=== PATIENT | female | born 1985 | race Caucasian/White ===

== ENCOUNTER 2024-05-04 10:48 | Inpatient (IN) | payer OTHER, SELFPAY ==
[2024-05-04] VITALS (173 sets, daily range): BP systolic 85–237; BP diastolic 42–205; PULSE 56–184; TEMP 36.6–37.3; O2SAT 89–100; BMI 27.6
--- NOTE | 2024-05-04 10:48 | LDADM ---
This patient, Mya Jordan, was admitted to Labor/Delivery/Recovery 106 on 05/04/24 at 10:48. Plans for labor, pain management and were discussed with patient. Patient/family oriented to hospital policies and general routines including ID bracelet, bed and alarms, visiting hours, pain management, procedures, bathroom and other care routines, personal items, smoking policy, room service/diet and guest tray routines, security routines, and visiting hours. Patient/Family are encouraged to report perceived risks to care and to ask questions if they do not understand what they are told or what they should do. See OBIX for further documentation.
[2024-05-04 11:46] LABS: Basophils Absolute Auto 0.1 K/mm3 (0.0-0.1); Basophils Percent Auto 0.6 % (0.2-1.2); Eosinophils Absolute Auto 0.1 K/mm3 (0-0.3); Eosinophils Percent Auto 1.2 % (0-4.4); Hematocrit 35.2 % (37.0-47.0); Hemoglobin 11.7 g/dL (12.0-15.0); Immature Granulocyte Absolute 0.53 K/mm3 (0.00-0.031); Immature Granulocyte Percent A 4.9 % (0-0.5); Lymphocytes Absolute Auto 1.45 K/mm3 (0.9-3.2); Lymphocytes Percent Auto 13.4 % (18.3-44.2); Mean Corpuscular HGB Conc 33.2 g/dl (32-36); Mean Corpuscular Hemoglobin 29.2 pg (26-34); Mean Corpuscular Volume 87.8 fl (80-100); Mean Platelet Volume 9.8 fl (7.4-10.4); Monocytes Absolute Auto 0.6 K/mm3 (0.1-0.6); Monocytes Percent Auto 5.2 % (2.6-8.5); Neutrophils Absolute Auto 8.1 K/mm3 (1.3-6.7); Neutrophils Percent Auto 74.7 % (45.5-73.1); Platelet Count Result 167 k/mm3 (150-375); Red Blood Count 4.01 M/mm3 (4.2-5.4); Red Cell Distribution Width 15.9 % (11.5-14.5); White Blood Count 10.9 K/mm3 (4.5-10.0)
[2024-05-04] MEDS: miSOPROStol 25 MCG TABLET 50 MCG BUCCAL (11:55)
[2024-05-04 12:19] LABS: Rapid Plasma Reagin Non-Reactive (NonReactive)
[2024-05-04 12:53] LABS: HIV 1/2 Ab P24 Ag Result Negative (Negative)
[2024-05-04] MEDS: LACTATED RINGERS 1,000 ML 125 ML IV CONT ×2 (16:36→18:31)
[2024-05-04] MEDS: OXYTOCIN 30 UNITS/NS 500 ML 30 UNITS/500 ML BAG IV CONT (16:37)
--- NOTE | 2024-05-04 17:16 | WPDANESEPP ---
Anes - Eval Pre Procedure Procedure: Labor epidural Date/Time: 05/04/24 17:16 Surgeon: tesha Preop Diagnosis: Abdominal pain with contractions Pre Op Diagnosis: SROM Patient Data Age: 38 Gender: F Height: 1.7 m Weight: 80 kg Last Vital Signs Temp 98.9 F 05/04/24 16:00 Pulse 90 05/04/24 17:00 BP 115/77 05/04/24 17:00 O2 Del Method Room Air 05/04/24 12:14 Allergies Allergy/AdvReac Type Severity Reaction Status Date / Time No Known Allergies Allergy Verified 04/17/24 12:34 Home Medications Medication Instructions Recorded Confirmed Type aspirin 81 mg tablet 81 mg PO DAILY 04/17/24 04/17/24 History bupropion HCl 100 mg tablet 300 mg PO DAILY 04/17/24 04/17/24 History ferrous sulfate 325 mg (65 mg 325 mg PO DAILY 04/17/24 04/17/24 History iron) tablet vits no.126-ferrous fum 1 tablet PO DAILY 04/17/24 04/17/24 History 28 mg iron-folic acid 800 mcg tablet (Classic ) valacyclovir 500 mg tablet 500 mg PO DAILY 05/04/24 05/04/24 History Laboratory Tests 05/04/24 11:31 WBC 10.9 H K/mm3 (4.5-10.0) RBC 4.01 L M/mm3 (4.2-5.4) Hgb 11.7 L g/dL (12.0-15.0) Hct 35.2 L % (37.0-47.0) MCV 87.8 fl (80-100) MCH 29.2 pg (26-34) MCHC 33.2 g/dl (32-36) RDW 15.9 H % (11.5-14.5) Plt Count 167 k/mm3 (150-375) MPV 9.8 fl (7.4-10.4) Immature Gran % (Auto) 4.9 H % (0-0.5) Neut % (Auto) 74.7 H % (45.5-73.1) Lymph % (Auto) 13.4 L % (18.3-44.2) [place] % (Auto) 5.2 % (2.6-8.5) Eos % (Auto) 1.2 % (0-4.4) Baso % (Auto) 0.6 % (0.2-1.2) Lymph # (Auto) 1.45 K/mm3 (0.9-3.2) [place] # (Auto) 0.6 K/mm3 (0.1-0.6) Eos # (Auto) 0.1 K/mm3 (0-0.3) Baso # (Auto) 0.1 K/mm3 (0.0-0.1) Abs Immat Gran (auto) 0.53 H K/mm3 (0.00-0.031) Absolute Neuts (auto) 8.1 H K/mm3 (1.3-6.7) Absolute Nucleated RBC 0.000 K/mm3 (0.0-0.012) Nucleated RBC % 0.0 % (0.0-0.2) RPR Non-reactive (NonReactive) HIV 1&2 Ab/P24 Ag 4thGn Negative (Negative) Blood Type O Positive Antibody Screen Negative : gestational age HCG: positive Patient hx anesthesia problems: none Family hx anesthesia problems: none Results Review: All pre-operative results and documents have been reviewed as part of the pre-operative evaluation. [facility] Past Medical History Medical History Overweight (BMI 25.0-29.9) and not yet delivered Family History Family History Other No pertinent family history Social History Social History Years smoked: 2 Smoking status: Former smoker Substance use: never Do You Feel Safe in your Home?: Yes Lack of Transportation: No Lack of Food: Never True Current Housing: I Have Housing Concerned About Future Housing: No Difficulty Paying Gas/Electric Bills: No Difficulty Paying for Meds: No Currently Unemployed: No Education: Bachelor's Degree Difficulty w/ Childcare or Family Care: No Spiritual care concerns: No Exam Day of Procedure 05/04/24 17:16 Patient weight: overweight Airway: Mallampati scale class II
--- NOTE | 2024-05-04 18:21 | WPDOBADMIT ---
Obstetrics - Admit Note Admission Note: record reviewed. No pertinent additions to the history and/or any subsequent changes in the physical findings that are not consistent with the expected course of the were found. Patient presents for SROM of meconium stained fluid at 1015 this AM. Reports ctx starting after SROM. Good movement. Just received epidural. Pitocin per protocol s/p cytotec x1. Additions to the history and/or subsequent changes in the physical findings follow. None.
--- NOTE | 2024-05-04 23:17 | PM.OBPRVD ---
OB - Vaginal Delivery Note Procedure Delivery date: 05/04/24 Events: Other (AMA, SROM) Delivery augmentation: Pitocin (following 1 dose of buccal cytotec) Delivery monitor: External FHT and External Uterine Route of delivery: Episiotomy description: None Laceration Description: Perineal - 2nd Degree Delivery repair: vicryl Specimen: No Quantitative Blood Loss (ml): 200 Anesthesia type: Epidural Disposition: Floor Complications: No immediate complications Narrative: See H&P and notes for details on patient's admission and labor. She progressed to complete cervical dilation and at the appropriate time began pushing. With adequate expulsive efforts by the mother, the baby's head was delivered without difficulty. Nuchal cord was present x1 and was easily reduced. The baby's right shoulder was anterior and delivered under the pubic symphysis without difficulty. The posterior shoulder and the rest of the baby delivered without difficulty. The umbilical cord was doubly clamped and cut after 60 seconds of delayed cord clamping. Care of the infant was then assumed by the nursing staff. Baby Date of : 05/04/24 Time of : 22:56 Gestational Age by Date: 39 Infant gender: Male presentation: vertex position: Left Occiput Anterior Placenta delivery description: Expressed Cord Vessel Description: 3 Vessels, Nuchal Cord and Delayed Cord Clamping score one minute: 8 score five minutes: 9
[2024-05-04] MEDS: OXYTOCIN 30 UNITS/NS 500 ML 30 UNITS/500 ML BAG 125 UNITS IV CONT (23:33)
[2024-05-05] VITALS (31 sets, daily range): BP systolic 91–104; BP diastolic 54–71; PULSE 68–118; RESP 16–18; TEMP 36.5–36.9; O2SAT 97–100
[2024-05-05] MEDS: BENZOCAINE 20% AER SPR (*SP) 56 GM CAN 1 SPRAY TOPICAL (01:52)
[2024-05-05] MEDS: WITCH HAZEL 40 PADS 1 PAD TOPICAL (01:52)
--- NOTE | 2024-05-05 02:19 | OBPPTRN ---
Patient transferred to post room #286 via wheelchair. Support person present. Oriented to unit, room, information board, rooming in, admission packet and security measures. Patient verbalizes understanding.
[2024-05-05] MEDS: IBUPROFEN 600 MG TABLET PO ×2 (04:58→16:42)
[2024-05-05 06:05] LABS: Hemoglobin 9.2 g/dL (12.0-15.0)
[2024-05-05] MEDS: ACETAMINOPHEN 325 MG TABLET 650 MG PO ×2 (07:31→21:12)
[2024-05-05] MEDS: DOCUSATE SODIUM 100 MG CAPSULE PO ×2 (07:33→16:41)
[2024-05-05] MEDS: POLYSACCHARIDE IRON COMPLEX 150 MG CAPSULE PO ×2 (07:33→16:41)
--- NOTE | 2024-05-05 07:58 | PM.OBPNVD ---
OB - PN: Subj Subjective Date/time seen: 05/05/24 07:58 Interval history: PPD#1 Doing well Bleeding improved Pain well controlled Emptying bladder without issue , working on latching OB - PN: Obj Data Labs 05/05/24 04:46 Labs: Laboratory Results - last 24 hr 05/04/24 05/05/24 11:31 04:46 WBC 10.9 H RBC 4.01 L Hgb 11.7 L 9.2 L Hct 35.2 L 28.0 L MCV 87.8 MCH 29.2 MCHC 33.2 RDW 15.9 H Plt Count 167 MPV 9.8 Immature Gran % (Auto) 4.9 H Neut % (Auto) 74.7 H Lymph % (Auto) 13.4 L [place] % (Auto) 5.2 Eos % (Auto) 1.2 Baso % (Auto) 0.6 Lymph # (Auto) 1.45 [place] # (Auto) 0.6 Eos # (Auto) 0.1 Baso # (Auto) 0.1 Abs Immat Gran (auto) 0.53 H Absolute Neuts (auto) 8.1 H Absolute Nucleated RBC 0.000 Nucleated RBC % 0.0 RPR Non-reactive HIV 1&2 Ab/P24 Ag 4thGn Negative Blood Type O Positive Antibody Screen Negative OB - PN A/P Assessment and Plan (1) (spontaneous vaginal delivery): Code(s): O80 - Encounter for full-term uncomplicated delivery Status: Acute Plan day: 1 Plan: routine care Time Spent With Patient Time: Total time spent is greater than 50% in coordination of care (as documented) at patient's floor/unit and/or counseling patient: Review of Systems Review of Systems: All systems reviewed & are unremarkable except as noted in HPI and below Exam Const: General: comfortable and no acute distress Orientation/consciousness: patient oriented x3 Resp: Effort & Inspection: normal respiratory effort
[2024-05-05] MEDS: valACYclovir HCL 500 MG TABLET PO (08:20)
[2024-05-05] MEDS: MULTIVIT/MIN/PREN/FOL AC/IRON TABLET 1 TAB PO (08:20)
[2024-05-05] MEDS: buPROPion HCL XL (24 HR) 150 MG TABCR 300 MG PO (08:20)
--- NOTE | 2024-05-05 10:45 | PC.NURSE ---
0750 & 1045: Introductions were made, then consulted with patient to assess needs related to . Mother led the conversation with her?plans to feed?her infant and the?experience so far. Encouraged understanding of the benefits of skin to skin (demonstrating unwrapping infant and placing upright on her chest), stimulating with massage touch, changing positions to encourage wakefulness, feeding on demand (aiming for 8-12 times in 24 hours, about every 2-3 hours), milk production, and duration of feeding. Mother works well with her infant with encouragement and education. Reviewed positioning and ear, shoulder, hip alignment, supporting the breast to facilitate a deep latch, asymmetrical latch (off-center), leading with the chin with a big, open, wide gape and body close to mother. Infant latched optimally to the [right] breast (at both feeding times) in [cross cradle] position. Education given to the mother of how to visualize the suckling (with good rocking jaw motion), swallows (dropping of the lower jaw) and how to listen for drinking at the breast (the ka sound). was [able] to maintain latch without pain to mother protecting the nipple with optimal positioning and latching. Mother voiced understanding of skin to skin, stimulating with massage touch, talking to infant to encourage if it has been 2 -2.5 hours since the start of the last , to call if infant does not latch, or if there is discomfort with . Resources used for education were facilitated with the number written on the communication board, and the mom/baby guide. Parents voiced understanding of information, demonstrated learning and will call if there is a request for assistance. Reported to the Primary RN.
--- NOTE | 2024-05-05 12:55 | WPDANLDPN2 ---
Anes-Prog Note L&D Date/Time: 05/05/24 12:55 Comfortable throughout: labor and delivery Neuraxial method: epidural Epidural/Spinal procedure site: clean & non-tender Neuro status: Neuro function grossly intact. Cardiovascular status: normal Respiratory status: normal Airway patency: baseline Mental status: baseline Post-Op hydration status: normal Vital Signs: Last Vital Signs Temp 36.8 C 05/05/24 12:20 Pulse 68 05/05/24 12:20 Resp 16 05/05/24 12:20 BP 95/54 L 05/05/24 12:20 Pulse Ox 99 05/05/24 12:20 O2 Del Method Room Air 05/04/24 12:14 Pain score (VAS): 09/03 I/O: Intake & Output 05/04/24 05/05/24 05/05/24 23:59 07:59 15:59 Intake Total 239.6 1000 Output Total 200 135 Balance 39.6 -135 1000 Post-procedural complaints: none Patient feedback: Patient satisfied with anesthetic care.
[2024-05-06] MEDS: WITCH HAZEL 40 PADS 1 PAD TOPICAL (08:05)
[2024-05-06] MEDS: DOCUSATE SODIUM 100 MG CAPSULE PO (08:05)
[2024-05-06] MEDS: BENZOCAINE 20% AER SPR (*SP) 56 GM CAN 1 SPRAY TOPICAL (08:05)
[2024-05-06 08:06] VITALS: BP 103/67; PULSE 81; RESP 18; TEMP 37.1; O2SAT 99
[2024-05-06] MEDS: buPROPion HCL XL (24 HR) 150 MG TABCR 300 MG PO (08:06)
[2024-05-06] MEDS: IBUPROFEN 600 MG TABLET PO (08:06)
[2024-05-06] MEDS: valACYclovir HCL 500 MG TABLET PO (08:06)
[2024-05-06] MEDS: MULTIVIT/MIN/PREN/FOL AC/IRON TABLET 1 TAB PO (08:06)
[2024-05-06] MEDS: POLYSACCHARIDE IRON COMPLEX 150 MG CAPSULE PO (08:06)
--- NOTE | 2024-05-06 08:42 | PM.OBPNVD ---
OB - PN: Subj Subjective Date/time seen: 05/06/24 08:42 Interval history: PPD#1 Doing well Bleeding improved Pain well controlled Emptying bladder without issue , working on latching Patient comments: no complaints, pain well controlled and tolerating diet OB - PN: Obj Data Labs 05/05/24 04:46 OB - PN A/P Plan day: 2 Plan: routine care and discharge home Time Spent With Patient Time: Total time spent is greater than 50% in coordination of care (as documented) at patient's floor/unit and/or counseling patient: Exam Const: General: comfortable and no acute distress Resp: Effort & Inspection: normal respiratory effort Auscultation: no rales, no rhonchi and no wheezes Cardio: Rate: regular rate Heart sounds: no click, no murmurs and no rubs GI: GI Palp: Yes Soft to palpation and No Tenderness to palpation present (GI) Auscultation: normal bowel sounds Extrem: General: normal to inspection, no pedal edema and no calf tenderness
--- NOTE | 2024-05-06 08:43 | P.DS_ITS ---
DS: Admitting Diagnosis Discharge Date May 06, 2024 Admitting Diagnosis term DS: Discharge Diagnosis Discharge Diagnosis (1) Post term , delivered: Code(s): O48.0 - Post-term Status: Acute OB - DS: Summary OB Procedures : None OB Procedures Intrapartum: Spontaneous Vag Delivery OB Procedures: : None Peripartum Data Laceration Description: Perineal - 2nd Degree Episiotomy description: None Time Spent with Patient Time attestation: Total time spent providing and/or coordinating discharge services: Discharge Plan Discharge Discharging Clinician: Prudencio Estrella Patient Disposition: Home, Self-Care Activity: pelvic rest Diet: regular Patient Instructions: Antibiotic Form Stand Alone Forms: General Discharge Information Follow-up/Referrals: Prudencio Estrella MD [Physician] - Discharge Medications: Continued bupropion HCl [Wellbutrin] 100 mg Tablet 300 mg PO DAILY ferrous sulfate 325 mg (65 mg iron) Tablet 325 mg PO DAILY Adult Aspirin 81 mg Tablet 81 mg PO DAILY Classic 28 mg iron- 800 mcg Tablet 1 tablet PO DAILY valacyclovir 500 mg tablet 500 mg PO DAILY Date of admission: 05/04/24 10:48 Primary Care Provider: PHYSICIAN,SURVEYING TECHNICIAN Admitting Provider: Harjinder Parish Attending physician on admission: Harjinder Parish Condition: Stable
--- NOTE | 2024-05-06 11:00 | PC.NURSE ---
Communication board updated with contact information. Mother verbalizes she is able to independently latch with appropriate positioning and alignment. She denies any nipple discomfort and is responsively . is currently meeting outcomes for weight, output, jaundice, blood sugar and feeding frequencies of 8-12 times in 24 hours. Mother declines any additional assistance or education at this time. Mother is encouraged to call for assistance if her doesn?t latch, pain with latching, questions or concerns. Mother voiced understanding of information shared along with the mom/baby guide for an additional resource. Reported to the Primary RN.
[2024-05-07 11:51] VITALS: BP 98/63; PULSE 86; RESP 18; TEMP 36.7; O2SAT 98
== END 2024-05-06 13:55 | disposition home or self-care (01) | DRG 807 ==
LOC: ANHLDR 23:10 → ANHOB2 05-06 08:44 → ANHLDR 05-07 07:36 → ANHOB2 05-07 07:36
PROVIDERS: Admitting Provider Obstetrics & Gynecology; Visit Provider Obstetrics & Gynecology
DX: O77.0 Labor and delivery complicated by meconium in amniotic fluid (principal); Z37.0 Single live birth; O69.81X0 Labor and delivery complicated by cord around neck, without compression, not applicable or unspecified; O70.1 Second degree perineal laceration during delivery; Z3A.39 39 weeks gestation of pregnancy
CPT/HCPCS: 36415; 85014; 85018; 85025; 86592; 86703; 86850; 86900; 86901; A9270; G0432; J2590; J2795; J7120